=== PATIENT | male | born 1955 | race Caucasian/White ===

== ENCOUNTER 2022-05-10 14:16 | Emergency (ER) | payer MEDICARE, OTHER, SELFPAY ==
[2022-05-10 14:40] VITALS: BP 142/87; PULSE 116; RESP 26; TEMP 36.7; O2SAT 93; BMI 29.7
--- NOTE | 2022-05-10 14:46 | XR_ITS ---
PROCEDURE INFORMATION: Exam: XR Chest Exam date and time: 05/10/2022 2:56 PM Age: 66 years old Clinical indication: Cough TECHNIQUE: Imaging protocol: Radiologic exam of the chest. Views: 2 views. COMPARISON: No relevant prior studies available. FINDINGS: Subtle left basal and bilateral infrahilar streak like opacities and segmental bronchial wall thickening. Remainder of the lungs are clear. No pleural effusion or pneumothorax. Normal cardiomediastinal silhouette and central airways. Calcified aortic knob. No acute skeletal abnormality or aggressive osseous lesion. IMPRESSION: Concern for mild bilateral infrahilar bronchitis and perhaps early airspace disease in the left lung base. Consider a mild acute viral illness in the appropriate clinical setting.
--- NOTE | 2022-05-10 14:52 | HMH.EDUTC ---
[facility] [place] Clinical Impression: Acute bronchitis Qualifiers: Bronchitis organism: unspecified organism Qualified Code(s): J20.9 - Acute bronchitis, unspecified Disposition: Home, Self-Care Condition on Discharge: Good Instructions: DI for Acute Bronchitis Additional Instructions: Start antibiotic today. Be sure to complete entire prescription even if feeling better Tylenol and ibuprofen as needed for pain or fever Humidifier/vaporizer/hot steamy shower Follow-up with primary care this week Follow-up immediately in the ER of the [facility] for new or worsening symptoms or no noticeable improvement over the next 48-72 hours. Stop smoking Inhaler every 4-6 hours as needed. Should help open airways improved cough, wheezing, shortness of breath Cedrick Madden will not cause drowsiness to use at bedtime to help stop cough so that she can get some sleep Prescriptions: Benzonatate [Benzonatate 100mg cap] 100 mg PO BID PRN 6 Days #12 cap PRN Reason: Cough Prescription Printed Azithromycin [Zithromax 250mg tab] 250 mg PO DIRECTED #6 tab Prescription Printed Referrals: Provider,Referral, MD [Primary Care Provider] - Time of Disposition: 15:30 Medical Decision Making - Shreyas Inquiry Pt receiving controlled substance: No Vital Signs: 05/10/22 14:40 Temperature 98.1 F Temperature Source Oral Pulse Rate [Right Brachial] 116 H Respiratory Rate 26 H Blood Pressure [Right Arm] 142/87 H Blood Pressure Mean [Right Arm] 105 Blood Pressure Source [Right Arm] Automatic Cuff Blood Pressure Position [Right Arm] Sitting 02 Sat by Pulse Oximetry 93 L Oxygen Delivery Method Room Air Orders (Tests/Meds): ED MEDICATIONS Discontinued Medications Generic Name Dose Route Start Last Admin Trade Name Freq PRN Reason Stop Dose Admin Dexamethasone Sodium Phosphate 4 mg 05/10/22 15:00 05/10/22 15:00 Dexamethasone 4mg/Ml 1ml Vial IM 05/10/22 15:01 4 mg ONCE ONE Administration ORDERS Category Date Time Status Full Resp Panel w/COVID ([facility]) Routine Lab 05/10/22 15:12 Ordered [facility] [place] HPI - General Chief complaint: Urgent Treatment Center Stated complaint: Cough Time Seen by Provider: 05/10/22 14:52 Mode of Arrival: Ambulatory Source of Information: Patient, Spouse Limitations: No Limitations Description of Symptoms (Recalled from Triage Doc. by RN): PATIENT C/O PRODUCTIVE COUGH AND FEVER X 2 WEEKS. HE REPORTS A HISTORY OF ASTHMA AND STATES THAT HE FRACTURED A RIB 3 WEEKS AGO AND HAS NOT BEEN ABLE TO TAKE DEEP BREATHS WELL HEENT Symptoms (Recalled from RN notes): No Resp Symptoms (Recalled from RN notes): Yes Skin Symptoms (Recalled from RN notes): No MS Symptoms (Recalled from RN notes): No Functional Status (Recalled from RN notes): WNL - History of Present Illness Provider Complaint: 66 yr old male presents for productive cough,soa and congestion for 2 weeks. pt states hx of asthma and he is visiting grandchildren for out of state and picked up a cold from them. pt states 3 weeks ago he had fx his ribs - Related Data Previous Rx's Medication Instructions Recorded Azithromycin [Zithromax 250mg 250 mg PO DIRECTED #6 tab 05/10/22 tab] Benzonatate [Benzonatate 100mg 100 mg PO BID PRN 6 Days #12 cap 05/10/22 cap] Allergies Allergy/AdvReac Type Severity Reaction Status Date / Time No Known Allergies Allergy Verified 05/10/22 14:56 - Worker's Comp Is this a Worker's Comp case?: No [facility] History - Hepatitis A Screen Attestation statement:: This patient has been screened for Hepatitis A risk factors. I have reviewed the patient's past medical history: Yes ROS Obtained: Yes Systems reviewed as appropriate & no additional complaints - Constitutional Constitutional: Reports system reviewed and no additional complaints, except as docu, Denies fever(s) - Eyes Eyes: Reports system reviewed and no additional complaints, except as docu, Denies dry eyes - E
[2022-05-10 15:18] LABS: Adenovirus,PCR Not Detected (NotDetected); Bordetella Pertussis Not Detected (NotDetected); Chlamydophila Pneumoniae, PCR Not Detected (NotDetected); Coronavirus 19, PCR Not Detected (NotDetected); Coronavirus 229E Not Detected (NotDetected); Coronavirus NL63 Not Detected (NotDetected); Coronavirus OC43 Not Detected (NotDetected); Coronovirus HKU1,PCR Not Detected (NotDetected); Human Metapneumovirus Not Detected (NotDetected); Influenza A, PCR Not Detected (NotDetected); Influenza AH1, 2009 Not Detected (NotDetected); Influenza AH1, PCR Not Detected (NotDetected); Influenza AH3,PCR Not Detected (NotDetected); Influenza B, PCR Not Detected (NotDetected); Mycoplasma Pneumoniae, PCR Not Detected (NotDetected); Parainfluenza 1, PCR Not Detected (NotDetected); Parainfluenza 2, PCR Not Detected (NotDetected); Parainfluenza 3, PCR Not Detected (NotDetected); Parainfluenza 4, PCR Not Detected (NotDetected); Respiratory Syncytial Virus Not Detected (NotDetected)
[2022-05-10 15:29] VITALS: BP 142/87; PULSE 116; RESP 26; TEMP 36.7; O2SAT 93
[2022-05-10 19:22] LABS: Rhinovirus/Enterovirus Detected (NotDetected)
== END 2022-05-10 15:42 | disposition home or self-care (01) ==
PROVIDERS: Emergency Provider Nurse Practitioner Family
DX: J20.9 Acute bronchitis, unspecified (principal)
CPT/HCPCS: 71046; 87581; 87632; 87798; 96372; 99212; C9803; G0463; U0003; U0005